=== PATIENT | female | born 1980 | race Caucasian/White ===

== ENCOUNTER 2017-03-27 17:57 | Emergency (ER) | payer OTHER ==
[2017-03-27 18:43] LABS: BASO # 0.1 10_X3_uL (0.0-0.1); BASO % 0.4 % (0.1-1.2); EOS # 0.2 10_X3_uL (0.0-0.4); EOS % 1.6 % (0.7-5.8); GRAN # 7.4 10_X3_uL (1.6-6.1); GRAN % 63.9 % (34.0-71.1); HEMATOCRIT 43.8 % (34-45); HEMOGLOBIN 14.2 g/dL (11.2-15.7); LYMPH # 3.1 10_X3_uL (1.2-3.7); MEAN CORPUSCULAR HEMOGLOBIN 29.2 pg (27.0-33.0); MEAN CORPUSCULAR HGB CONC 32.4 g/dL (32.0-36.0); MEAN CORPUSCULAR VOLUME 90.1 fL (79-95); MONO # 0.8 10_X3_uL (0.2-0.9); MONO % 7.1 % (4.7-12.5); PLATELET COUNT 305 x10_3/uL (182-369); RED BLOOD COUNT 4.86 x10_6/uL (3.9-5.2); RED CELL DISTRIBUTION WIDTH 14.2 % (11.7-14.4); WHITE BLOOD COUNT 11.6 x10_3/uL (4.0-10.0)
[2017-03-27 18:52] LABS: BLOOD UREA NITROGEN 13 mg/dL (7-18); CARBON DIOXIDE 23 mmol/L (21-32); CREATININE 0.7 mg/dL (0.6-1.3); GLUCOSE,RANDOM 97 mg/dL (70-99); POTASSIUM 4.2 mmol/L (3.5-5.1); SODIUM 142 mmol/L (136-145)
[2017-03-27 19:03] LABS: THYROID STIMULATING HORMONE 1.69 uIU/mL (0.34-4.82)
[2017-03-27 19:05] LABS: TROP-I < 0.30 NG/ML (0.00-0.30)
== END 2017-03-27 19:20 | disposition home or self-care (01) ==
LOC: ER 17:57
PROVIDERS: General Practice
DX: R00.0 Tachycardia, unspecified (principal); F41.9 Anxiety disorder, unspecified; R06.02 Shortness of breath; Z87.442 Personal history of urinary calculi; F17.210 Nicotine dependence, cigarettes, uncomplicated; Z88.0 Allergy status to penicillin; Z88.2 Allergy status to sulfonamides; Z88.1 Allergy status to other antibiotic agents
CPT/HCPCS: 36415; 71010; 80048; 80307; 84443; 85025; 93005; 99285-25

== ENCOUNTER 2017-05-03 18:37 | Emergency (ER) | payer OTHER | END 2017-05-03 21:16 | disposition home or self-care (01) | LOC: ER 18:37 | DX: T14.8 Other injury of unspecified body region (principal); M79.1 Myalgia; V43.62XA Car passenger injured in collision with other type car in traffic accident, initial encounter; Y92.410 Unspecified street and highway as the place of occurrence of the external cause; Z88.0 Allergy status to penicillin; Z88.2 Allergy status to sulfonamides; Z88.1 Allergy status to other antibiotic agents | CPT/HCPCS: 72100; 73000; 73564; 81025; 93005; 99283; 99284 ==